=== PATIENT | male | born 1955 | race Caucasian/White ===

== ENCOUNTER 2022-03-27 08:19 | Day surgery (SDC) | payer MEDICARE, BC, SELFPAY ==
[2022-03-27] VITALS (25 sets, daily range): BP systolic 99–141; BP diastolic 68–97; PULSE 51–77; RESP 12–18; TEMP 35.6–37.1; O2SAT 94–98; BMI 30.2
[2022-03-27] MEDS: ACETAMINOPHEN 500 MG TABLET 1000 MG PO ×3 (08:29→22:10)
[2022-03-27] MEDS: OXYCODONE (CR) 10 MG TAB.ER.12H PO (09:00)
[2022-03-27] MEDS: CELECOXIB 200 MG CAPSULE PO ×2 (09:00→21:08)
[2022-03-27] MEDS: LACTATED RINGERS 1000 ML 1,000 ML 100 ML IV (09:15)
[2022-03-27] MEDS: SODIUM CHLORIDE 0.9 % (FLUSH) 10 ML SYRINGE IVF (09:15)
[2022-03-27] MEDS: fentaNYL 100 MCG/2 ML inj IVP (09:40)
[2022-03-27] MEDS: MIDAZOLAM HCL 1 MG/ML inj IVP (09:40)
--- NOTE | 2022-03-27 10:11 | W.PM.NB ---
Nerve Block Nerve Block Time Seen by Provider: 09:30 Date Seen: 03/27/22 Type of block requested by surgeon for post-operative analgesia: geniculars Side: right Time out performed: Yes Verification of patient name: Yes Verification of date of : Yes Site marking: site marked Name of person performing procedure: Yakov Continuous monitoring Was continuous monitoring of O2 sat, B/P, security monitor, recorded every 15 minutes?: Yes Procedure Checklist: sterile prep, needles and gloves Medications given in 5ml increments after negative aspiration: Marcaine %: 0.5 mL: 10 Needle gauge: 25 Patient tolerated procedure well: Yes Block Charges Block Charge (with Pro Fee): Genicular Nerve Block Use of Ultrasound Machine for Block: No
--- NOTE | 2022-03-27 10:12 | P.NB_ITS ---
Nerve Block Nerve Block Time Seen by Provider: 09:30 Date Seen: 03/27/22 Type of block requested by surgeon for post-operative analgesia: adductor canal Side: right Time out performed: Yes Verification of patient name: Yes Verification of date of : Yes Site marking: site marked Name of person performing procedure: Yakov Continuous monitoring Was continuous monitoring of O2 sat, B/P, color television console monitor, recorded every 15 minutes?: Yes Procedure Checklist: sterile prep, needles and gloves Ultrasound guided. Images saved: Yes Medications given in 5ml increments after negative aspiration: Marcaine %: 0.5 mL: 20 Needle gauge: 20 Decadron (mg): 10 Precedex (mcg): 25 Patient tolerated procedure well: Yes Additional comments: Needle noted adjacent to nerve Block Charges Block Charge (with Pro Fee): Femoral Nerve Use of Ultrasound Machine for Block: Yes- US Guidance/pain block
--- NOTE | 2022-03-27 10:18 | SUR.PREOP ---
TIME?OUT:?0936 PT/RN/MDA?VERIFICATION?OF?SURGICAL?SITE,?PROCEDURE,?AND?CONSENT OBTAINED?PRIOR?TO?INVASIVE?PROCEDURE.
[2022-03-27] MEDS: CEFAZOLIN 2 GM INJ IVP (10:39)
--- NOTE | 2022-03-27 11:09 | SUR.OPER ---
PATIENT QUESTIONS ANSWERED SATISFACTORILY PREOPERATIVELY.? PATIENT BROUGHT TO OR #2 PER CART FROM THE BLOCK ROOM.? Patient positioned supine on OR #2 bed.?The perioperative?team supported arms bilaterally on arm boards.? Final approval of positioning by surgeon.?
--- NOTE | 2022-03-27 11:49 | CRLHL7_ITS ---
For Patients: As a result of the Cures Act, medical imaging exams and procedure reports are released immediately into your electronic medical record. You may view this report before your referring provider. If you have questions, please contact your health care provider. Indication: post op TKA Technique: Two views right knee Findings/Impression: Hardware from a right total knee arthroplasty is in satisfactory position. Bone alignment is normal. No sign of acute fracture. Postop changes are within normal limits. Dictated by Arturo Hope MD @ 03/30/2022 3:50:03 PM (Electronically Signed)
--- NOTE | 2022-03-27 11:51 | P.ORPRC_ITS ---
Procedure Note Date of procedure: 03/27/22 Procedure: SURGEON: Praveen Saini MD STORE PRODUCT DEMONSTRATOR: TIP Haro PREOPERATIVE DIAGNOSIS: Right knee osteoarthritis POSTOPERATIVE DIAGNOSIS: Right knee osteoarthritis NAME OF OPERATION: Right total knee arthroplasty ANESTHESIA: Spinal ESTIMATED BLOOD LOSS: 0 mL COMPLICATIONS: None SPECIMENS: None DRAINS: None PREOPERATIVE ANTIBIOTICS: Ancef 2 grams IMPLANTS: 1. J&J Attune # 7 posterior stabilized femur 2. # 7 fixed-bearing tibia 3. # 7 posterior stabilized, 5 mm fixed-bearing polyethylene 4. 41 patella INDICATIONS: The patient is a 66-year-old male with a longstanding history of severe, unrelenting right knee pain secondary to end-stage (grade IV) right knee osteoarthritis. Despite appropriate nonoperative management, including activity modification, anti-inflammatories, [id number] pain medication, bracing, physical therapy, and injections they continue to have pain and disability. Operative intervention was offered. The risks, benefits and expected outcomes were discussed in detail. These included but were not limited to: Infection, bleeding, injury to blood vessel or nerve, venous thromboembolism. All questions were answered to their satisfaction. Use of an speech pathology assistant was necessary throughout the case for patient positioning and safety, soft tissue retraction, and closure. PROCEDURE: Spinal anesthesia was administered. The patient was placed supine on the operating table. The speech pathology assistant made sure the patient was positioned appropriately. The lower extremity was prepped and draped in the usual sterile fashion. The limb was exsanguinated with the Christopher bandage. The pneumatic tourniquet was inflated to 300 mmHg. A standard anterior incision was made with the knee in flexion. Subcutaneous dissection was sharply taken through fascial layer #1. Full-thickness medial and lateral flaps were elevated. The speech pathology assistant retracted the soft tissues and protected them throughout the case. A standard medial parapatellar approach was made. The patella was everted. The infrapatellar fat pad was preserved. The menisci and cruciate ligaments were sharply d?brided. Marginal osteophytes were d?brided with the rongeur. The drill was used to penetrate the femoral canal. The canal was aspirated and irrigated with pulse lavage. The intramedullary femoral guide was placed for a 5-degree valgus cut, removing 10 mm off the distal femur. The saw was used to make the cut. Whitesides line and the trans epicondylar axis were marked. The femoral sizing guide was pinned onto the distal femur. Three degrees of external rotation nicely parallels the transepicondylar axis. Pins were placed for posterior referencing. The four-in-one cutting guide was pinned onto the distal femur. The anterior, posterior, and chamfer cuts were made. The speech pathology assistant protected the collateral ligaments. The box cutting guide was pinned. The box cuts were made. The boxed trial was placed and was an excellent fit. Drill holes for the lugs were made. Attention was then turned to the proximal tibia. The extramedullary tibial guide was placed for a neutral varus/valgus cut with 5 degrees of posterior slope, removing 2 mm based off the medial tibial surface. The speech pathology assistant protected the collateral ligaments and the neurovascular bundle. The saw was used to make the cut. Trial components were placed. The knee was nicely balanced in both flexion and extension. Rotation of the tibial component was matched to the femur in full extension, matched to our tibial cutting pins, and marked with cautery. The trial components were removed. The tray was pinned by the speech pathology assistant and the drill and the punch were used. The tray was removed. The punch was used again. We placed a bone plug in the femoral canal. Attention was then turned to the patella. The [place] patellar thickness was 21 mm. The lobster claw resection guide was used with the 7.5 mm rahul. The saw was used to make the cut. Drill holes were made by the speech pathology assistant. The trial was placed and was an excellent fit. Cancellous surfaces were irrigated with pulse lavage and thoroughly dried by the speech pathology assistant. We cemented the tibial component, then the femoral component. A trial spacer was placed. The knee was brought into full extension. We then cemented the patellar component. Excessive cement was removed. The cement was allowed to harden. Any remaining excessive cement was removed with the osteotome. We impacted the 5 mm polyethylene onto the tibial tray. The knee was taken through a range of motion and was found to be nicely balanced in both flexion and extension. The patella tracks centrally. The speech pathology assistant did a three minute dilute Betadine solution soak. The speech pathology assistant irrigated the wound with 3 liters of normal saline via pulse lavage. The speech pathology assistant reapproximated the extensor mechanism with #1 Vicryl in an interrupted [id number] fashion. The speech pathology assistant then ran the extensor mechanism with a #1 PDO Stratafix. The speech pathology assistant closed the subcutaneous tissues with a 3-0 Stratafix and the skin with a running 3-0 Stratafix in a subcuticular fashion. Glue was used to seal the skin. The speech pathology assistant placed a dry dressing, AMINTA stocking, and Polar Care. Sponge and needle counts were correct x2. The patient tolerated the procedure well. There were no apparent complications. They were carefully transferred to the hospital bed and taken to the postanesthesia care unit in satisfactory condition. PLAN: The patient will be mobilized with physical therapy. Aspirin will be used for DVT prophylaxis. They will be discharged to home once medically appropriate.
--- NOTE | 2022-03-27 12:27 | W.ANESCHARGE ---
Anesthesia Charges Start Date/Time Anesthesia Start Date: 03/27/22 Anesthesia Start Time: 10:32 Stop Date/Time Anesthesia Stop Date: 03/27/22 Anesthesia Stop Time: 12:24 Summary Emergency: No
[2022-03-27] MEDS: LACTATED RINGERS 1000 ML 1,000 ML 75 ML IV (13:08)
--- NOTE | 2022-03-27 13:12 | W.ANESCHARGE ---
Anesthesia Charges Start Date/Time Anesthesia Start Date: 03/27/22 Anesthesia Start Time: 10:32 Stop Date/Time Anesthesia Stop Date: 03/27/22 Anesthesia Stop Time: 12:24 Summary Emergency: No
--- NOTE | 2022-03-27 14:28 | P.IMCN_ITS ---
Date of Consult Consult date: 03/27/22 Requesting Physician: Orthopedics (Dr. Saini) Primary Care Provider: Mark Baron MD Consult Narrative Reason for consult: Medical management Narrative: Darrian Mallory is a 66 year old male seen in consultation for management of medical problems after surgery. Today he underwent right total knee arthroplasty under the care of Dr. Saini. There were no operative complications. He reports feeling fine now his block is wearing off and he is getting return of feeling and motion in his feet. Minimal pain in his knee. Preoperatively he reports he was feeling well no recent illness. Preop physical did identify any significant perioperative concerns. He did not take his aspirin for the past week and he did not take his morning medications today. He reports his blood sugars have been well controlled. Review of Systems Narrative: Patient has no other concerns. No recent illness. PFSH PFSH Medical History Diabetes mellitus Hyperlipidemia Hypertension Pre-diabetes Smoking Surgical History H/O umbilical hernia repair History of ear surgery History of total knee replacement (TKR) (11/19/17) Status post total left knee replacement Family History Father Brain cancer DM (diabetes mellitus), type 2 Myocardial infarction Stroke Mother Liver cancer Brother CHF (congestive heart failure) Myocardial infarction Sister Melanoma Breast cancer Social History (Updated 03/27/22 @ 14:34 by Demetri Pratt MD) Narrative: Lives at home with his . He has 3 steps to get into his house and then he can live on 1 floor. , Alexa, and daughter, Maryuri, are healthcare power of securities attorney. Code status is full. He smokes a pack cigarettes a day. Declines nicotine replacement. He drinks 6-8 hard lemonade is per week. He reports no problems if he does not drink for a couple days. Highest level of school completed/degree received: Associate degree: academic program Smoking Status: Current every day smoker What tobacco products do you use: cigarettes Smoking packs per day: 1 Smoking cigarettes per day: 20.0 Do you use any of these nicotine containing products: None How often do you have a drink containing alcohol: 2-3 times a week Alcohol type: hard liquor and other Alcohol type details: hard core lemonade How many standard drinks containing alcohol do you have on a typical day: 3 or 4 How often do you have six or more drinks on one occasion: Never AUDIT-C Alcohol total score: 4 Non-prescribed substance use: over the counter (eg: immodium) Non-prescribed substance use details: ibuprofen and tylenol Caffeine: No service: No Meds Home Medications and Allergies Home Medications Medication Instructions Recorded Confirmed Type amoxicillin 500 mg capsule 2,000 mg PO PRN 03/26/22 History aspirin 81 mg tablet,delayed 81 mg PO DAILY 03/26/22 03/27/22 History release atorvastatin 40 mg tablet 40 mg PO DAILY 03/26/22 03/27/22 History cholecalciferol (vitamin D3) 50 2,000 unit PO DAILY 03/26/22 03/27/22 History mcg (2,000 unit) tablet lisinopril 20 mg tablet 40 mg PO DAILY 03/26/22 03/27/22 History metformin 500 mg tablet 1,000 mg PO DAILY 03/26/22 03/27/22 History multivitamin (Multiple Vitamins 1 tab PO DAILY 03/26/22 03/27/22 History tablet) folic acid 0.8 mg capsule 0.4 mg PO DAILY 03/27/22 03/27/22 History Allergies Allergy/AdvReac Type Severity Reaction Status Date / Time No Known Allergies Allergy Verified 03/27/22 08:44 Exam Narrative: Exam Narrative: He is alert and appears in no distress. Eyes normal. Oropharynx normal. Respirations are clear to auscultation. Cardiovascular: S1, S2, regular rate and rhythm. No murmur gallop or rub. Abdomen: Bowel sounds active. Abdomen is soft without tenderness or mass. Extremities with intact pulses and intact sensation. Good strength and motion in his feet and ankles bilaterally. Const: Vital Signs, click to edit/add: Vital Signs - 24 hr 03/27/22 09:22 03/27/22 09:36 03/27/22 09:40 Temperature 97.8 F Pulse Rate 62 56 L 62 Pulse Rate [Right Pulse Oximeter] Respiratory Rate 16 16 16 Blood Pressure 128/89 139/87 128/90 H Blood Pressure [Le ft Arm] Pulse Oximetry 97 98 98 Oxygen Delivery Me thod Room Air Nasal Cannula Nasal Cannula Oxygen Flow Rate 2 2 03/27/22 09:45 03/27/22 12:20 03/27/22 12:25 Temperature 98 F Pulse Rate 57 L 62 62 Pulse Rate [Right Pulse Oximeter] Respiratory Rate 16 12 12 Blood Pressure 115/79 103/68 99/68 Blood Pressure [Le ft Arm] Pulse Oximetry 97 95 96 Oxygen Delivery Me thod Nasal Cannula Room Air Room Air Oxygen Flow Rate 2 03/27/22 12:30 03/27/22 12:35 03/27/22 12:40 Temperature Pulse Rate 60 60 60 Pulse Rate [Right Pulse Oximeter] Respiratory Rate 12 12 12 Blood Pressure 108/71 110/71 108/71 Blood Pressure [Le ft Arm] Pulse Oximetry 94 96 94 Oxygen Delivery Me thod Room Air Room Air Room Air Oxygen Flow Rate 2 03/27/22 12:45 03/27/22 12:50 03/27/22 13:01 Temperature 98 F 96.0 F L Pulse Rate 60 60 58 L Pulse Rate [Right Pulse Oximeter] Respiratory Rate 12 12 16 Blood Pressure 109/76 108/75 Blood Pressure [Le ft Arm] 110/81 Pulse Oximetry 97 97 Oxygen Delivery Me thod Room Air Room Air Oxygen Flow Rate 03/27/22 13:15 03/27/22 13:30 Temperature 96.1 F L Pulse Rate Pulse Rate [Right Pulse Oximeter] 59 L 58 L Respiratory Rate 16 18 Blood Pressure Blood Pressure [Le ft Arm] 118/77 129/83 Pulse Oximetry 97 97 Oxygen Delivery Me thod Room Air Room Air Oxygen Flow Rate Documenting provider has reviewed patient's vital signs: yes Assessment and Plan Assessment and plan (1) Status post right knee replacement: Status: Acute Assessment and Plan: Doing well (2) Diabetes mellitus: Status: Acute Assessment and Plan: Resume home medications (3) Hypertension: Status: Acute Assessment and Plan: Resume home medications as blood pressure allows (4) Smoking: Status: Acute Assessment and Plan: Recommend smoking cessation. Patient declines nicotine replacement. Plan Probable discharge to home tomorrow if doing well. Total time spent today is 40 minutes, 25 minutes in coordination of care and discussing with patient and other providers postoperative care, managing medical problems and rehab
[2022-03-27] MEDS: CEFAZOLIN 2 GM in 0.9 % SODIUM CHLORIDE Mini-bag 100 ML IVPB ×2 (16:04→22:10)
[2022-03-27] MEDS: OXYCODONE 5 MG TABLET PO (18:10)
--- NOTE | 2022-03-27 18:15 | PC.NURSE ---
Pt. up in chair with walker, transfer belt and assist of one. Right knee dressing dry and intact. CMS intact. Oxycodone and scheduled Tylenol used for pain control. Pt. has not voided yet post-surgery.
[2022-03-27] MEDS: ATORVASTATIN CALCIUM 40 MG TABLET PO (21:09)
[2022-03-27] MEDS: ASPIRIN 81 MG TABLET EC PO (21:09)
[2022-03-27] MEDS: SENNOSIDES 1 TAB TABLET 2 TAB PO (21:09)
[2022-03-27] MEDS: 0.9 % SODIUM CHLORIDE 500 ML IV (21:12)
[2022-03-28 03:00] VITALS: RESP 16
--- NOTE | 2022-03-28 05:22 | PC.NURSE ---
[id number]: patient up with SBA walker and gait belt. surgical site c/d/i. pain well controlled see EMAR, shift unremarkable.
[2022-03-28] MEDS: CEFAZOLIN 2 GM in 0.9 % SODIUM CHLORIDE Mini-bag 100 ML IVPB (06:35)
[2022-03-28 07:10] LABS: Basophils Absolute Auto 0.01 K/uL (0.00-0.30); Basophils Percent Auto 0.1 % (0.0-3.0); Hematocrit 34.7 % (37.0-53.0); Hemoglobin* 12.2 gm/dL (13.5-17.5); Immature Granulocytes Abs Auto 0.02 K/uL (0.00-0.30); Lymphocytes Percent Auto 8.9 % (20-44); Mean Corpuscular HGB Conc 35 gm/dL (32-36); Mean Corpuscular Hemoglobin 32 pg (26-34); Mean Corpuscular Volume 90 fL (80-100); Monocytes Percent Auto 5.6 % (0.0-11.0); Neutrophils Percent Auto 85.2 % (42.0-72.0); Platelet Count* 192 K/uL (140-440); RDW Coefficient of Variation % 11.1 % (11.5-15.5); Red Blood Count 3.87 m/uL (4.30-5.90); Slide Review Reflex No; White Blood Count* 10.56 K/uL (4.50-11.00)
[2022-03-28 07:25] LABS: Prothrombin Time 13.6 Seconds
[2022-03-28 07:27] LABS: Potassium* 4.4 mmol/L (3.6-5.1); Sodium* 135 mmol/L (135-149)
[2022-03-28 07:30] LABS: Blood Urea Nitrogen* 17 mg/dL (7-30); Creatinine* 0.6 mg/dL (0.5-1.5); Est. Creatinine Clearance* 83.23; Estimated Glomerular Filt Rate 107 ml/min
[2022-03-28 07:41] VITALS: BP 118/88; PULSE 69; RESP 18; TEMP 36.6; O2SAT 93
[2022-03-28] MEDS: METFORMIN 500 MG TABLET 1000 MG PO (08:12)
--- NOTE | 2022-03-28 08:14 | PM.ORPN ---
Subjective Subjective Time Seen by Provider: 07:30 Date Seen: 03/28/22 Principal diagnosis: Status post right knee replacement Interval history: Darrian is comfortable this morning. He states he got about 3 hours of sleep last night. Plans to discharge to home today. Ortho Exam Narrative Exam Narrative: Alert and oriented x3. Patient is in no acute distress. Converses without labored breathing. Hearing is grossly intact. Ambulates with a walker. Examination of the right knee shows dressing is intact. There is no erythema or warmth or sign of infection. Subcutaneous fluid/blood collection is present. Mild effusion. CMS is intact right lower extremity. Bilateral calves are soft and nontender. Const Vital Signs, click to edit/add: Vital Signs - 24 hr 03/27/22 09:22 03/27/22 09:36 03/27/22 09:40 Temperature 97.8 F Pulse Rate 62 56 L 62 Pulse Rate [Right Pulse Oximeter] Respiratory Rate 16 16 16 Blood Pressure 128/89 139/87 128/90 H Blood Pressure [Left Arm] Pulse Oximetry 97 98 98 Oxygen Delivery Method Room Air Nasal Cannula Nasal Cannula Oxygen Flow Rate 2 2 03/27/22 09:45 03/27/22 12:20 03/27/22 12:25 Temperature 98 F Pulse Rate 57 L 62 62 Pulse Rate [Right Pulse Oximeter] Respiratory Rate 16 12 12 Blood Pressure 115/79 103/68 99/68 Blood Pressure [Left Arm] Pulse Oximetry 97 95 96 Oxygen Delivery Method Nasal Cannula Room Air Room Air Oxygen Flow Rate 2 03/27/22 12:30 03/27/22 12:35 03/27/22 12:40 Temperature Pulse Rate 60 60 60 Pulse Rate [Right Pulse Oximeter] Respiratory Rate 12 12 12 Blood Pressure 108/71 110/71 108/71 Blood Pressure [Left Arm] Pulse Oximetry 94 96 94 Oxygen Delivery Method Room Air Room Air Room Air Oxygen Flow Rate 2 03/27/22 12:45 03/27/22 12:50 03/27/22 13:01 Temperature 98 F 96.0 F L Pulse Rate 60 60 58 L Pulse Rate [Right Pulse Oximeter] Respiratory Rate 12 12 16 Blood Pressure 109/76 108/75 Blood Pressure [Left Arm] 110/81 Pulse Oximetry 97 97 Oxygen Delivery Method Room Air Room Air Oxygen Flow Rate 03/27/22 13:15 03/27/22 13:30 03/27/22 13:45 Temperature 96.1 F L Pulse Rate Pulse Rate [Right Pulse Oximeter] 59 L 58 L 51 L Respiratory Rate 16 18 16 Blood Pressure Blood Pressure [Left Arm] 118/77 129/83 124/79 Pulse Oximetry 97 97 95 Oxygen Delivery Method Room Air Room Air Room Air Oxygen Flow Rate 03/27/22 14:00 03/27/22 14:15 03/27/22 14:30 Temperature 96.3 F L 97.0 F L Pulse Rate Pulse Rate [Right Pulse Oximeter] 57 L 52 L 61 Respiratory Rate 18 16 16 Blood Pressure Blood Pressure [Left Arm] 141/91 H 125/80 137/97 H Pulse Oximetry 98 97 98 Oxygen Delivery Method Room Air Room Air Room Air Oxygen Flow Rate 03/27/22 15:00 03/27/22 16:00 03/27/22 17:00 Temperature 97.6 F 98.7 F Pulse Rate Pulse Rate [Right Pulse Oximeter] 57 L 64 68 Respiratory Rate 16 16 16 Blood Pressure Blood Pressure [Left Arm] 121/80 121/80 127/83 Pulse Oximetry 95 96 95 Oxygen Delivery Method Room Air Room Air Room Air Oxygen Flow Rate 03/27/22 18:00 03/27/22 19:00 03/27/22 22:15 Temperature 97.2 F L 98.1 F 98 F Pulse Rate Pulse Rate [Right Pulse Oximeter] 69 70 77 Respiratory Rate 18 18 16 Blood Pressure Blood Pressure [Left Arm] 137/89 133/86 130/86 Pulse Oximetry 95 95 96 Oxygen Delivery Method Room Air Room Air Room Air Oxygen Flow Rate 2 03/27/22 23:00 03/28/22 03:00 03/28/22 07:41 Temperature 98 F 97.8 F Pulse Rate Pulse Rate [Right Pulse Oximeter] 77 69 Respiratory Rate 16 16 18 Blood Pressure Blood Pressure [Left Arm] 130/86 118/88 Pulse Oximetry 96 93 Oxygen Delivery Method Room Air Room Air Room Air Oxygen Flow Rate Assessment and Plan Assessment and plan (1) Status post right knee replacement: Problem details: Date of surgery 03/27/2022 Status: Acute Assessment and Plan: Plan for discharge is today to home if they meet discharge criteria. DVT prophylaxis includes aspirin 81 mg twice daily x1 month, River stockings x1 month may remove for 1 hr per day, frequent ambulation Remove dressing in 1 week. Observe wound and phone Orthopedics with any questions or concerns Return to clinic in 1 week for a wound check Return to clinic in [address] Saini Minimize narcotic use. Wean off and discontinue soon as possible. Activities as tolerated. No strenuous activity. Outpatient physical therapy as scheduled. Ice and elevate the operative extremity. No restriction on icing. (2) Diabetes mellitus: Status: Acute (3) Hypertension: Status: Acute (4) Smoking: Status: Acute
[2022-03-28] MEDS: CELECOXIB 200 MG CAPSULE PO (08:41)
[2022-03-28] MEDS: SENNOSIDES 1 TAB TABLET 2 TAB PO (08:41)
[2022-03-28] MEDS: lisinopriL 20 MG TABLET PO (08:41)
[2022-03-28] MEDS: MULTIVITAMIN/MINERALS 1 TABLET 1 TAB PO (08:41)
[2022-03-28] MEDS: ASPIRIN 81 MG TABLET EC PO (08:42)
[2022-03-28] MEDS: ACETAMINOPHEN 500 MG TABLET 1000 MG PO (10:17)
--- NOTE | 2022-03-28 11:16 | PC.NURSE ---
Discharge: Patient pleasant and cooperative, vitals stable and WNL. Pain rating 2/10, denies need for PRN medication, pain managed with continuous cryocuff and scheduled medication. Dressing over site dry and intact. IV removed with catheter intact. Patient able to ambulate well with standby assist and is able to perform ADLs per self. Tolerating regular diet. Discharge instructions given, follow ups and new medications reviewed, questions answered as needed. Patient discharged via wheelchair @ 1110, met at ED entrance, discharged home.
== END 2022-03-28 11:10 | disposition home or self-care (01) ==
LOC: OR 08:19 → MEDSURG 13:47
PROVIDERS: PCP Family Medicine; Visit Provider Orthopaedic Surgery
PROC: (CPT 27447; principal; 2022-03-27 10:15)
DX: M17.11 Unilateral primary osteoarthritis, right knee (principal); E11.9 Type 2 diabetes mellitus without complications; I10 Essential (primary) hypertension; E78.5 Hyperlipidemia, unspecified; F17.210 Nicotine dependence, cigarettes, uncomplicated
CPT/HCPCS: 27447; 01402; 36415; 64447; 64454; 73560; 76942; 82565; 84132; 84295; 84520; 85025; 85610; 97110; 97116; 97161; 97165; 97535; A9153; A9270; C1776; J0690; J1100; J2250; J2704; J3010; J3490; J7120